=== PATIENT | female | born 1965 | race Caucasian/White ===

== ENCOUNTER 2023-06-09 19:26 | Emergency (ER) | payer OTHER ==
[2023-06-09] MEDS ORDERED: Ketorolac Tromethamine 30 MG/ML VIAL ONE (19:50)
[2023-06-09] MEDS ORDERED: Amoxicillin/Potassium Clav 875 MG TAB ONE (19:50)
== END 2023-06-09 20:24 | disposition home or self-care (01) ==
LOC: CSHERS 19:26
DX: K04.7 Periapical abscess without sinus (principal); F17.210 Nicotine dependence, cigarettes, uncomplicated
CPT/HCPCS: 96372; 99282; J1885